=== PATIENT | male | born 1930 | race Caucasian/White ===

== ENCOUNTER 2017-07-01 09:13 | Outpatient (CLI) | payer MEDICARE ==
[~2017-07-01] VITALS: Ht 172.7 cm; Wt 68.3 kg
--- NOTE | ~2017-07-01 | DS ---
PATIENT:KEELY CHEEMA :30 MEDICAL RECORD: [id number] DISCHARGE SUMMARY ADMISSION DATE: 07/01/17 DISCHARGE DATE: 07/02/17 DATE OF DISCHARGE: 07/02/2017. DISCHARGE DIAGNOSES: 1. Angina. 2. Coronary artery disease. 3. Percutaneous transluminal coronary angioplasty stent to right coronary artery and left anterior descending this admission. HISTORY: Mr. 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 He will be brought back in the near future for PTCA stent of the circumflex. TRANSINT:[id number] Voice Confirmation ID: [id number] DOCUMENT ID: [id number] SANTHOSH CHA MD at 1018 CC: [id number] DICTATION DATE: 07/02/17 1246 COMMERCIAL REAL ESTATE AGENT: 07/03/17 0927 DEP CLI 07/02/17 [id number] [place] [address]
--- NOTE | ~2017-07-01 | HEMODYNAMI ---
PATIENT:KEELY CHEEMA MEDICAL RECORD: [id number] : 30 LOCATION:[facility] ADMISSION DATE: 07/01/17 Generatedon:07/01/201712:52 Patient name: KEELY CHEEMA Patient #: [id number] SSN: : 1930 Date of study: 07/01/2017 Page: Of Hemodynamic Procedure Report Patient Data Patient Demographics Procedure consent was obtained First Name: KEELY Gender: Male Last Name: ANETTE : 1930 Patient #: [id number] Age: 86 year(s) Race: Unknown Additional ID: [id number] Contact details Address: [address] [place] [address] State: [place] City: [place] Zip code: [address] Past Medical History Allergies Allergen Reaction Date Comments Reported Other allergy 07/01/2017 [facility] Admission Admission Data Admission Date: 07/01/2017 Admission Time: 9:13 Height (in.): 5.8 BSA: 0.31 (m2) Height (cm.): 14.73 BMI: 3323.07 (kg/m2) Weight (lbs.): 159 Weight (kg.): 72.12 Lab Results Lab Result Date: 07/01/2017 Lab Result Time: 0:00 Biochemistry Name Units Result Min Max BUN mg/dl 35 --(----)-* 7 18 Creatinine mg/dl 1.8 --(----)-* 0.6 1.3 CBC Name Units Result Min Max Hemoglobin g/dl 16.3 --(--*-)-- 13.5 17.5 Procedure Procedure Types Cath Procedure Diagnostic Procedure C [facility] w/Coronaries PCI Procedure Coronary Stent Coronary Stent Initial Miscellaneous Procedures Moderate Sedation up to 15 minutes Procedure Description Procedure Date Procedure Date: 07/01/2017 Procedure Start Time: 12:38 Procedure End Time: 12:52 Procedure Staff Name Function Saleem Melchor MD Performing Physician Delvis Burhc RT Scrub Charis Siddiqi RT Monitor Sushil Lorigan RN Nurse Procedure Data Cath Procedure Fluoroscopy Diagnostic fluoroscopy Total fluoroscopy Time: 2.8 time: 2.8 min min Diagnostic fluoroscopy Total fluoroscopy dose: 437 dose: 437 mGy mGy Contrast Material Contrast Material Type Amount (ml) Isovue 300 70 Entry Location Entry Primary Successful Side Size Upsize Upsize Entry Closure Jacobo ccessful Closure Location (Fr) 1 (Fr) 2 (Fr) Remarks Device Remarks Radial Right 6 Fr Mechanical artery Short Compression Estimated blood loss: 10 ml Diagnostic catheters Device Type Used For End Catheter Placement DIAGNOSTIC [place] 110cm 5 Procedure Fr catheter ([id number]) Procedure Complications No complications Procedure Medications Medication Administration Route Dosage 0.9% NaCl I.V. 100 ml/hr Oxygen NC 2 l/min Heparin Flush Bag added to field 2 bags (1000units/500ml NS) Lidocaine 2% added to field 20 Benadryl I.V. 50 mg Radial Cocktail added to field 1 syringe (Verapomil 2mg/Nitro 400mcg/Heparin 1500units) Versed I.V. 1 mg Fentanyl I.V. 50 mcg Radial Cocktail I.A. 1 syringe (Verapomil 2mg/Nitro 400mcg/Heparin 1500units) Heparin Bolus I.V. 4000 units Hemodynamics Rest BSA: 0.31 (m2) HGB: 16.3 (g/dl) O2 Consumption: Estimated: 35 (ml/min) O2 Consum ption indexed: Estimated:112.9 (ml/min/m) Heart Rate: 69 (bpm) Snapshots Pre Cath Intra NCS Post Cath Vital Signs Time Heart Resp SPO2 etCO2 NIBP (mmHg) Rhythm Pain Sedation Rate (ipm) (%) (mmHg) Status Level (bpm) 12:25:16 90 24 99 0 157/85(126) A-Fib 0 (11) 10(A) , No pain 12:29:58 81 19 99 15.9 153/78(124) A-Fib 0 (11) 10(A) , No pain 12:34:43 84 24 99 21.2 141/78(108) A-Fib 0 (11) 10(A) , No pain 12:39:54 85 20 98 15.9 130/74(95) A-Fib 0 (11) 10(A) , No pain 12:44:37 75 18 94 20.4 115/55(83) A-Fib 0 (11) 9(A) , No pain 12:49:16 78 17 95 0 133/65(92) A-Fib 0 (11) 10(A) , No pain Medications Time Medication Route Dose Verified Delivered Reason Note s Effectiveness by by 12:28:02 0.9% NaCl I.V. 100 Sushil Sushil Per physician ml/hr Miguel Rivera RN RN 12:28:11 Oxygen NC 2 l/min Sushil Sushil Per physician Miguel Rivera RN RN 12:28:22 Heparin Flush added 2 bags Sushil Sushil used for Bag to Miguel Rivera procedure (1000units/500ml RN RN NS) 12:28:34 Lidocaine 2% added 20ml Sushil Sushil for local to vial Miguel Rivera anesthetic RN RN 12:28:44 Benadryl I.V. 50 mg Sushil Sushil Per physician Miguel Rivera RN RN 12:28:57 Radial Cocktail added 1 Sushil Sushil used for (Verapomil to syringe Miguel Rivera procedure 2mg/Nitro field TESFAYE RN 400mcg/Heparin 1500units) 12:38:03 Versed I.V. 1 mg Sushil Sushil for sedation Miguel Rivera RN RN 12:38:19 Fentanyl I.V. 50 mcg Sushil Sushil for sedation Miguel Rivera RN RN 12:40:44 Radial Cocktail I.A. 1 Sushil Saleem for (Verapomil syringe Miguel Melchor MD vasodilation 2mg/Nitro RN 400mcg/Heparin 1500units) 12:44:56 Heparin Bolus I.V. 4000 Sushil Saleem for units Miguel Melchor MD anticoagulation aquatic habitat biologist Log Time Note 12:06:23 Patient Height : 5.8 inches 12:06:26 Patient Weight : 159 lbs 12:07:41 H&P Date Dictated: 06/29/2017 Within 30 days and on chart., H&P Addendum completed by physician on day of procedure. (MUST COMPLETE FOR ALL OUTPATIENTS). 12:08:55 Lab Result : Creatinine 1.8 mg/dl 12:08:55 Lab Result : BUN 35 mg/dl 12:08:55 Lab Result : Hemoglobin 16.3 g/dl 12:09:19 Delvis ALDRIDGE(R) sent for patient. Start room use. 12:09:20 Time tracking: Regular hours 12:09:24 Plan of Care:Hemodynamics will remain stable., Cardiac rhythm will remain stable., Comfort level will be maintained., Respiratory function will remain adequate., Patient/ family verbilizes understanding of procedure., Procedure tolerated without complication., Recovers from procedure without complications.. :: Signed procedure consent form obtained from patient. 12::29 Patient allergic to Other allergySHRIMP 12:18:20 Patient received from Pre/Post Procedure Room to CCL 1 Alert and oriented. Tansferred to table in Supine position. 12:18: Warm blankets applied, and matt hugger turned on for patient comfort. 12:: Correct patient and procedure confirmed by team. :: ECG and BP/O2 sat monitors applied to patient. : Vital chart was started 12:28:02 0.9% NaCl 100 ml/hr I.V. was administered by Sushil Rivera RN; Per physician; 12:28:11 Oxygen 2 l/min NC was administered by Sushil Rivera RN; Per physician; 12:28:22 Heparin Flush Bag (1000units/500ml NS) 2 bags added to field was administered by Sushil Rivera RN; used for procedure; 12:28:34 Lidocaine 2% 20ml vial added to field was administered by Sushil Rivera RN; for local anesthetic; 12:28:44 Benadryl 50 mg I.V. was administered by Sushil Rivera RN; Per physician; 12:28:57 Radial Cocktail (Verapomil 2mg/Nitro 400mcg/Heparin 1500units) 1 syringe added to field was administered by Sushil Rivera RN; used for procedure; 12:30:08 Baseline sample Acquired. 12:30:12 Rhythm: sinus rhythm 12:30:13 Full Disclosure recording started 12:30:14 Pre-procedure instructions explained to patient. 12:30:14 Pre-op teaching completed and patient verbalized understanding. 12:30:16 Family in patients room. 12:30:17 Patient NPO since Midnight. 12:30:22 Is the patient allergic to Iodine/contrast media? No. 12:30:25 Is patient on blood thinner?Yes 12::29 ACC The patient was administered the following blood thiners within the last 24 hours: ACCPlavix, Eliquis 12:30:31 Patient diabetic? No. 12:31:42 Previous problem with sedation/anesthesia? No ? 12:31:43 Snore? No 12:31:45 Sleep apnea? No 12:31:45 Deviated septum? No 12:31:46 Opens mouth fully? Yes 12:31:47 Sticks out tongue? Yes 12:31:49 Airway obstruction? No ? 12:31:50 Dentures? No ? 12:31:54 Modified Perry's test Ulnar < 7 seconds 12:31:56 Patient pain scale 0/10 ?. 12:32:05 IV patent on arrival in left forearm with 0.9% NaCl at [facility]. 12:32:09 Lab results completed and on chart. 12:32:13 Right Radial & Right Groin area was prepped with chlora-prep and draped in sterile fashion 12:32:14 Alarms reviewed by R. N. 12:32:14 Sharps counted by scrub and verified by R.N. 12:36:32 --------ALL STOP TIME OUT------ 12:36:33 Final Timeout: patient, procedure, and site verified with staff and physician. All members of the team are in agreement. 12:36:35 Right Radial & Right Groin site verified by team. 12:36:38 Physical assessment completed. ASA score P 2 - A patient with mild systemic disease as per Saleem Melchor MD. 12:36:41 Sedation plan: IV Moderate Sedation Medication:Versed, Fentanyl 12:36:55 Use device set Radial Dx or PCI 12:36:59 ACIST Syringe (23746) opened to sterile field. 12:37:02 Bag Decanter () opened to sterile field. 12:37:03 ACIST Manifold (30112) opened to sterile field. 12:37:03 ACIST Hand Control (63582) opened to sterile field. 12:37:04 Tegaderm 4 x 4 (1626W) opened to sterile field. 12:37:06 Medline Cath Pack ([id number]) opened to sterile field. 12:37:07 MBrace Wrist Support ([id number]) opened to sterile field. 12:37:08 SHEATH 6FR Slender ([id number]) opened to sterile field. 12:37:10 DIAGNOSTIC WIRE .035 260cm J wire (588599) opened to sterile field. 12:38:03 Versed 1 mg I.V. was administered by Sushil Rivera RN; for sedation; 12:38:19 Fentanyl 50 mcg I.V. was administered by Sushil Rivera RN; for sedation; 12:38:32 Procedure started. 12:38:57 Local anesthetic to right radial artery with Lidocaine 2% by Saleem Melchor MD.INITIAL ACCESS ONLY 12:39:26 A 6 Fr Short sheath was inserted into the Right Radial artery 12:40:36 A DIAGNOSTIC [place] 110cm 5 Fr catheter (639160) was advanced over the wire and used for Procedure. 12:40:44 Radial Cocktail (Verapomil 2mg/Nitro 400mcg/Heparin 1500units) 1 syringe I.A. was administered by Saleem Melchor MD; for vasodilation; 12:40:47 LV gram done using LAW 12:40:51 Injector settings: Ml/sec: 7, Volume: 15, 12:41:10 EF : 20 % 12:41:39 RCA angiography performed. 12:42:32 LCA angiography performed. 12:43:05 Catheter removed. 12:43:50 GUIDE 6FR AR 2.0 catheter ([id number]) opened to sterile field. 12:44:00 INFLATOR Merit BasixCompak (QF6018) opened to sterile field. 12:44:25 CHOICE PT Extra Support 182cm wire ([id number]) opened to sterile field. 12:44:45 6 Fr AR2 guide catheter was inserted over the wire 12:44:56 Heparin Bolus 4000 units I.V. was administered by Saleem Melchor MD; for anticoagulation; 12:45:00 CHOICE PT ES wire advanced. 12:45:38 Wire advanced across lesion. 12:46:33 Inflation Number: 1 A MIMA RX 3.5 x 34 stent ([id number]) was prepped and advanced across the Prox RCA. The stent was deployed at 15 CATHERINE for 0:10 (min:sec). 12:46:54 Stent catheter was removed intact over wire. 12:46:55 Wire removed. 12:46:55 Guide catheter removed. 12:48:46 TR BAND Standard ([id number]) opened to sterile field. 12:48:59 Sheath removed intact; hemostasis achieved with Mechanical Compression to the Right Radial artery. 12:49:02 Procedure ended.(Physican Out) 12:49:06 Fluoroscopy time 02.80 minutes. 12:49:10 Fluoroscopy dose: 437 mGy 12:49:10 Flurop Dose total: 437 12:49:13 Contrast amount:Isovue 300 70ml. 12:49:15 Sharps counted by scrub and verified by R.N. 12:49:17 TR band inflated with 10cc of air. 12:49:47 Post-procedure physical assessment completed. ASA score P 2 - A patient with mild systemic disease as per Saleem Melchor MD. 12:49:50 Post procedure rhythm: unchanged. 12:49:53 Estimated blood loss: 10 ml 12:49:55 Post procedure instruction explained to patient.Patient verbalizes understanding. 12:49:55 Patient needs reinforcement of post procedure teaching. 12:50:05 Procedure type changed to Cath procedure, Diagnostic procedure, LHC, LHC w/Coronaries, PCI procedure, Coronary Stent, Coronary Stent Initial, Miscellaneous Procedures, Moderate Sedation up to 15 minutes 12:51:04 Procedure and supply charges have been captured, reviewed, submitted and are correct. 12:51:06 Procedure Complication : No complications 12:52:09 Vital chart was stopped 12:52:09 See physician's report for complete and final results. 12:52:11 Report given to Pre/Post Procedure Room. 12:52:19 Patient transfered to Pre/Post Procedure Room with Bed. 12:52:20 Procedure ended. 12:52:20 Full Disclosure recording stopped 12:52:24 End room use (Document Last) Intervention Summary Intervention Notes Time ActionType Lesion and Equipment Used Action# Pressure Duration Attributes 12:46:33 Place stent Prox RCA MIMA RX 3.5 x 1 15 00:10 34 stent ([id number]) Device Usage Item Name Manufacture Quantity Catalog Number Hospital Part Current M inimal Lot# / Charge Number Stock Stock Serial# Code ACIST Syringe Acist 1 21715 034448 083299 175940 2 0 (45742) Medical Systems Inc Bag Decanter Microtek 1 2001S 463888 71774 783228 5 () Medical Inc. ACIST Manifold Acist 1 15349 873784 185249 633999 5 (26308) Medical Systems Inc ACIST Hand Acist 1 79634 835740 523077 542877 5 Control Medical (98298) Systems Inc Tegaderm 4 x 4 3M 1 1626W 355403 276288 031313 5 (1626W) Medline Cath Cardinal 1 [id number] 477474 90192 764873 5 Pack Health ([id number]) MBrace Wrist Advanced 1 140-0250-00 963976 02527 862166 5 Support Vascular ([id number]) Dynamics SHEATH 6FR Terumo 1 [id number] 746092 027543 411288 4 0 Slender ([id number]) DIAGNOSTIC [facility] [place] 1 784524 718469 431107 499248 3 0 WIRE .035 260cm J wire (255443) DIAGNOSTIC Terumo 1 40-2759 767796 026390 330641 5 [place] 110cm 5 Fr catheter (705483) GUIDE 6FR AR Medtronic 1 [id number] 670145 36098 725646 1 2.0 catheter (GL1HR74) INFLATOR Merit Merit 1 PP2284 760135 831986 890185 1 5 [employer] (KA3082) CHOICE PT Cunningham 1 [id number] 397221 431036 559734 5 Extra Support Scientific 182cm wire ([id number]) MIMA RX 3.5 x Medtronic 1 [id number] 288646 7435532 961732 5 [id number] 34 stent ([id number]) TR BAND Terumo 1 [id number] 708236 633601 911624 4 0 Standard ([id number]) Signature Audit [place] Stage Time Signature Unsigned Intra-Procedure 07/01/2017 Charis Siddiqi 12:52:40 PM RT(R) Signatures Monitor : Charis Siddiqi Signature : RT Date : Time : [facility] [address] [place] [address]
--- NOTE | ~2017-07-01 | HEMODYNAMI ---
PATIENT:KELEY CHEEMA MEDICAL RECORD: [id number] : 30 LOCATION:[facility] [address] [place], [place] [address]T# [id number] ADMISSION DATE: 07/01/17 Generatedon:07/02/201712:56 Patient name: KEELY CHEEMA Patient #: [id number] SSN: : 1930 Date of study: 07/02/2017 Page: Of Hemodynamic Procedure Report Patient Data Patient Demographics Procedure consent was obtained First Name: KEELY Gender: Male Last Name: ANETTE : 1930 Patient #: [id number] Age: 86 year(s) Race: Unknown Additional ID: [id number] Contact details Address: [address] [place] [address] State: [place] City: [place] Zip code: [address] Past Medical History Allergies Allergen Reaction Date Comments Reported Other allergy 07/01/2017 SHRIMP Other allergy 07/02/2017 [facility] Admission Admission Data Admission Date: 07/01/2017 Admission Time: 9:13 Room #: [facility] Height (in.): 5.8 BSA: 0.31 (m2) Height (cm.): 14.73 BMI: 3323.07 (kg/m2) Weight (lbs.): 159 Weight (kg.): 72.12 Lab Results Lab Result Date: 07/01/2017 Lab Result Time: 0:00 Biochemistry Name Units Result Min Max BUN mg/dl 35 --(----)-* 7 18 Creatinine mg/dl 1.8 --(----)-* 0.6 1.3 CBC Name Units Result Min Max Hemoglobin g/dl 16.3 --(--*-)-- 13.5 17.5 Procedure Procedure Types Cath Procedure PCI Procedure Coronary Stent Coronary Stent Initial Miscellaneous Procedures Moderate Sedation up to 15 minutes Procedure Description Procedure Date Procedure Date: 07/02/2017 Procedure Start Time: 12:29 Procedure End Time: 12:48 Procedure Staff Name Function Watson Riojas RN Nurse Saleem Melchor MD Performing Physician Nitin Chen RT Scrub [facility] RT Monitor Procedure Data Cath Procedure Fluoroscopy Diagnostic fluoroscopy Total fluoroscopy Time: 5.3 time: 5.3 min min Diagnostic fluoroscopy Total fluoroscopy dose: 566 dose: 566 mGy mGy Contrast Material Contrast Material Type Amount (ml) Isovue 300 78 Entry Location Entry Primary Successful Side Size Upsize Upsize Entry Closure Succes sful Closure Location (Fr) 1 (Fr) 2 (Fr) Remarks Device Remarks Femoral Right 6 Fr Exoseal artery Short Estimated blood loss: 10 ml Procedure Complications No complications Procedure Medications Medication Administration Route Dosage Oxygen NC 2 l/min Lidocaine 2% added to field 20 Heparin Flush Bag added to field 2 bags (1000units/500ml NS) 0.9% NaCl I.V. 100 ml/hr Versed I.V. 1 mg Fentanyl I.V. 50 mcg Versed I.V. 0.5 mg Fentanyl I.V. 25 mcg Heparin Bolus I.V. 4000 units Versed I.V. 0.5 mg Fentanyl I.V. 25 mcg Hemodynamics Rest BSA: 0.31 (m2) HGB: 16.3 (g/dl) O2 Consumption: Estimated: 42.16 (ml/min) O2 Con sumption indexed: Estimated:136 (ml/min/m) Pre Cath Intra NCS Post Cath Vital Signs Time Heart Resp SPO2 etCO2 NIBP (mmHg) Rhythm Pain Sedation Rate (ipm) (%) (mmHg) Status Level (bpm) 12:20:55 90 19 97 18.9 156/78(117) NSR 0 (11) 10(A) , No pain 12:25:37 77 18 98 18.2 138/84(129) NSR 0 (11) 10(A) , No pain 12:30:22 74 16 98 17.4 139/71(128) NSR 0 (11) 9(A) , No pain 12:35:33 69 15 98 10.6 132/66(113) NSR 0 (11) 9(A) , No pain 12:40:14 69 14 97 0 137/74(108) NSR 0 (11) 10(A) , No pain 12:44:54 72 15 98 9.8 137/86(121) NSR 0 (11) 10(A) , No pain Medications Time Medication Route Dose Verified Delivered Reason Notes Effectiveness by by 12:23:26 Oxygen NC 2 Saleem Watson used for l/min Jill Riojas RN procedure 12:23:32 Lidocaine 2% added 20ml Saleem Monge for local to vial Jill Melchor MD anesthetic field 12:23:38 Heparin Flush added 2 Saleemcatalina Monge used for Bag to bags Jill Melchor MD procedure (1000units/500ml field NS) 12:23:46 0.9% NaCl I.V. 100 Saleem Chaudhari Per physician ml/hr Jill Riojas RN 12:24:50 Versed I.V. 1 mg Saleem Chaudhari for sedation Jill Riojas RN 12:24:55 Fentanyl I.V. 50 Saleem Chaudhari for sedation mcg Jill Riojas RN 12:30:30 Versed I.V. 0.5 Saleem Magañaie for sedation mg Jill Riojas RN 12:30:34 Fentanyl I.V. 25 Saleem Chaudhari for sedation mcg Jill Riojas RN 12:31:48 Heparin Bolus I.V. 4000 Saleem Chaudhari for verifi ed units Jill Riojas RN anticoagulation with dr melchor 12:40:04 Versed I.V. 0.5 Saleem Magañaie for sedation mg Jill Riojas RN 12:40:08 Fentanyl I.V. 25 Saleem Chaudhari for sedation mcg Jill Riojas RN Procedure Log Time Note 12:00:51 Watson Riojas RN sent for patient. Start room use. 12:11:33 Informed consent obtained and on chart 12:11:56 Time tracking: Regular hours 12:12:00 Plan of Care:Hemodynamics will remain stable., Cardiac rhythm will remain stable., Comfort level will be maintained., Respiratory function will remain adequate., Patient/ family verbilizes understanding of procedure., Procedure tolerated without complication., Recovers from procedure without complications.. 12:12:01 Patient Weight : 159 lbs 12:12:01 Patient Height : 5.8 inches 12:12:03 Patient received from PCU to CCL 1 Alert and oriented. Tansferred to table in Supine position. 12:12:05 Warm blankets applied, and matt hugger turned on for patient comfort. 12:12:06 ECG and BP/O2 sat monitors applied to patient. 12:12:06 Correct patient and procedure confirmed by team. 12:12:47 Lab results completed and on chart. 12:18:34 H&P Date Dictated: 07/01/2017 Within 30 days and on chart.. 12:18:36 Pre-procedure instructions explained to patient. 12:18:38 Family in waiting room. 12:18:44 Patient NPO since Midnight. 12:18:59 Patient allergic to Other allergyShrimp 12:19:10 Is the patient allergic to Iodine/contrast media? Yes. 12:19:12 Was the patient premedicated? Yes 12:19:15 Is patient on blood thinner?Yes 12:19:19 ACC The patient was administered the following blood thiners within the last 24 hours: ACCPlavix 12:19:22 Patient diabetic? No. 12:19:30 Snore? No 12:19:32 Sleep apnea? No 12:19:36 Airway obstruction? No ? 12:19:44 Patient pain scale 0/10 ?. 12:19:53 IV patent on arrival in right forearm with 0.9% NaCl at KVO. 12:20:00 Vital chart was started 12:20:02 Right groin area was prepped with chlora-prep and draped in sterile fashion 12:20:04 Sharps counted by scrub and verified by R.N. 12:20:04 Alarms reviewed by R. N. 12:20:07 Physician paged 12:22:31 Final Timeout: patient, procedure, and site verified with staff and physician. All members of the team are in agreement. 12:22:31 --------ALL STOP TIME OUT------ 12:22:34 Right groin site verified by team. 12:22:38 Physical assessment completed. ASA score P 2 - A patient with mild systemic disease as per Saleem Melchor MD. 12:22:42 Sedation plan: IV Moderate Sedation Medication:Versed, Fentanyl 12:23:26 Oxygen 2 l/min NC was administered by Watson Riojas RN; used for procedure; 12:23:32 Lidocaine 2% 20ml vial added to field was administered by Saleem Melchor MD; for local anesthetic; 12:23:38 Heparin Flush Bag (1000units/500ml NS) 2 bags added to field was administered by Saleem Melchor MD; used for procedure; 12:23:46 0.9% NaCl 100 ml/hr I.V. was administered by Watson Riojas RN; Per physician; 12:24:50 Versed 1 mg I.V. was administered by Watson Riojas RN; for sedation; 12:24:55 Fentanyl 50 mcg I.V. was administered by Watson Riojas RN; for sedation; 12:26:21 Use device set TAUTH PCI 12:26:24 Use device set CATH PACK 12:26:29 ACIST Hand Control (48059) opened to sterile field. 12:26:29 ACIST Syringe (77091) opened to sterile field. 12:26:30 ACIST Manifold (30448) opened to sterile field. 12:26:31 Bag Decanter (2002S) opened to sterile field. 12::31 Medline Cath Pack ([id number]) opened to sterile field. 12:26:33 DIAGNOSTIC WIRE .035 260cm J wire (052263) opened to sterile field. 12:26:41 INFLATOR Merit BasixCompak (XI0467) opened to sterile field. 12:26:57 SHEATH 6FR [place] (MYL955) opened to sterile field. 12:27:20 PERCUTANEOUS ENTRY 19GA needle opened to sterile field. 12:27:34 Zero performed for pressure channel P1 12:27:47 Zero performed for pressure channel P1 12::56 Zero performed for pressure channel P1 12:29:46 GUIDE 6FR XBLAD 3.5 catheter ([id number]) opened to sterile field. 12:29:50 Procedure started. 12:29:51 Full Disclosure recording started 12:29:54 Local anesthetic to right femoral artery with Lidocaine 2% by Saleem Melchor MD.INITIAL ACCESS ONLY 12:30:13 A 6 Fr Short sheath was inserted into the Right Femoral artery 12:30:30 Versed 0.5 mg I.V. was administered by Watson Riojas RN; for sedation; 12:30:34 CHOICE PT Extra Support 182cm wire ([id number]) opened to sterile field. 12:30:34 Fentanyl 25 mcg I.V. was administered by Watson Riojas RN; for sedation; 12:30:57 6 Fr XBLAD 3.5 guide catheter was inserted over the wire 12:31:04 Wire removed. 12:31:17 GUIDE 6FR XBLAD 4.0 catheter (55555312) opened to sterile field. 12:31:32 6 Fr XBLAD 4 guide catheter was inserted over the wire 12:31:48 Heparin Bolus 4000 units I.V. was administered by Watson Riojas RN; for anticoagulation; verified with dr melchor 12:33:14 WHISPER 300cm guide wire ([id number]) opened to sterile field. 12:33:58 WHISPER 300 wire advanced. 12:34:54 Wire removed. 12:34:58 CHOICE PT Extra Support J 300cm guide wire ([id number]) opened to sterile field. 12:35:09 CHOICE PT 300 wire advanced. 12:36:25 Inflation Number: 1 A MIMA OTW 2.25 x 12 stent ([id number]) was prepped and advanced across the Dist LAD. The stent was deployed at 13 CATHERINE for 0:10 (min:sec). 12:37:00 Wire redirected to DIAG. 12:37:35 Stent catheter was removed intact over wire. 12:39:03 Inflation Number: 1 A MIMA OTW 2.25 x 08 stent ([id number]) was prepped and advanced across the 1st Diag. The stent was deployed at 17 CATHERINE for 0:10 (min:sec). 12:39:16 Wire redirected to LAD. 12:39:22 Stent catheter was removed intact over wire. 12:40:04 Versed 0.5 mg I.V. was administered by Watson Riojas RN; for sedation; 12:40:08 Fentanyl 25 mcg I.V. was administered by Watson Riojas RN; for sedation; 12:40:57 Inflation Number: 1 A MIMA OTW 2.5 x 15 stent ([id number]) was prepped and advanced across the Prox LAD. The stent was deployed at 17 CATHERINE for 0:10 (min:sec). 12:41:33 Inflation number: 2 The stent balloon was then re-inflated across the Prox LAD to 17 CATHERINE for 0:10 (min:sec). 12:41:48 Stent catheter was removed intact over wire. 12:41:49 Wire removed. 12:41:56 Guide catheter removed. 12:42:04 EXOSEAL 6Fr (EX600) opened to sterile field. 12:42:52 Sheath removed intact; hemostasis achieved with Exoseal to the Right Femoral artery. 12:42:54 Procedure ended.(Physican Out) 12:43:06 Fluoroscopy time 05.30 minutes. 12:43:11 Flurop Dose total: 566 12:43:11 Fluoroscopy dose: 566 mGy 12:43:19 Contrast amount:Isovue 300 78ml. 12:43:21 Sharps counted by scrub and verified by R.N. 12:43:30 FEMSTOP Gold (X61640) opened to sterile field. 12:43:34 Post procedure: right dorsailis pedis pulse 2+ Normal; easily identifiable; not easily obliterated. 12:43:40 Post-procedure physical assessment completed. ASA score P 2 - A patient with mild systemic disease as per Saleem Melchor MD. 12:43:41 Femstop placed over the right femoral artery at 170 mmHg. Hemostasis achieved. 12:46:58 Post procedure rhythm: unchanged. 12:47:00 Estimated blood loss: 10 ml 12:47:01 Post procedure instruction explained to patient.Patient verbalizes understanding. 12:47:02 Patient needs reinforcement of post procedure teaching. 12:47:54 Procedure type changed to Cath procedure, PCI procedure, Coronary Stent, Coronary Stent Initial, Miscellaneous Procedures, Moderate Sedation up to 15 minutes 12:48:43 Procedure and supply charges have been captured, reviewed, submitted and are correct. 12:48:46 Procedure Complication : No complications 12:48:48 Vital chart was stopped 12:48:49 See physician's report for complete and final results. 12:48:50 Report given to PCU. 12:48:53 Patient transfered to PCU with Bed. 12:48:54 Procedure ended. 12:48:54 Full Disclosure recording stopped 12:48:57 End room use (Document Last) Intervention Summary Intervention Notes Time ActionType Lesion and Equipment Action# Pressure Duration Attributes Used 12:36:25 Place stent Dist LAD MIMA OTW 2.25 1 13 00:10 x 12 stent ([id number]) 12:39:03 Place stent 1st Diag MIMA OTW 2.25 1 17 00:10 x 08 stent ([id number]) 12:40:57 Place stent Prox LAD MIMA OTW 2.5 1 17 00:10 x 15 stent ([id number]) 12:41:33 Reinflate Prox LAD MIMA OTW 2.5 2 17 00:10 stent x 15 stent balloon ([id number]) Device Usage Item Name Manufacture Quantity Catalog Number Hospital Part Current Min imal Lot# / Charge Number Stock Stock Serial# Code ACIST Syringe Acist 1 10918 293519 990945 947239 20 (11038) Medical Systems Inc ACIST Hand Acist 1 66986 782185 166885 115094 5 Control Medical (04002) Systems Inc ACIST Acist 1 27351 705558 933625 353852 5 Manifold Medical (78123) Systems Inc Medline Cath Cardinal 1 [id number] 282792 96206 529796 5 Pack Spangle ([id number]) Bag Decanter Microtek 1 2001S 605643 12079 532096 5 () Medical Inc. DIAGNOSTIC [place] 1 773726 791753 134179 698145 30 WIRE .035 260cm J wire (409235) INFLATOR [employer]lemental [employer] 1 OY6974 236349 116451 162246 15 [employer] BasixCompak (YB4870) SHEATH 6FR Terumo 1 ZIU313 800155 785164 983313 40 [place] (RYW606) PERCUTANEOUS [facility] 1 H32865 497103 097152 5 ENTRY 19GA needle GUIDE 6FR Cardinal 1 33890698 623011 425415 803860 10 XBLAD 3.5 Health catheter (41372122) CHOICE PT [place] 1 [id number] 323939 778337 484528 5 Extra Support Scientific 182cm wire (4691007I5) GUIDE 6FR Cardinal 1 11985880 091969 067262 953574 3 XBLAD 4.0 Health catheter (21182501) WHISPER 300cm [place] 1 [id number] 260870 212501 577753 5 guide wire Vascular (6101130TB) CHOICE PT [place] 1 [id number] 174347 225165 206504 5 Extra Support Scientific J 300cm guide wire (3389085D5) MIMA OTW 2.25 Medtronic 1 [id number] 454265 14675 056193 5 [id number] x 12 stent ([id number]) MIMA OTW 2.25 Medtronic 1 [id number] 165855 11731 342616 5 [id number] x 08 stent ([id number]) MIMA OTW 2.5 Medtronic 1 [id number] 745146 44374 867674 5 [id number] x 15 stent ([id number]) EXOSEAL 6Fr Cardinal 1 EX600 957695 556177 928426 10 (EX600) Health FEMSTOP Gold [facility] [place] 1 [id number] 206499 734473 099416 5 ([id number]) Signature Audit [place] Stage Time Signature Unsigned Intra-Procedure 07/02/2017 Charis Espinozaa Devang 12:50:05 PM RT(R) RT(R) 07/02/2017 12:50:48 PM Intra-Procedure 07/02/2017 Charis Siddiqi 12:56:25 PM RT(R) Signatures Monitor : Charis Siddiqi Signature : RT Date : Time : [address] [place] [address]
--- NOTE | ~2017-07-01 | OP ---
PATIENT NAME: KEELY CHEEMA MEDICAL RECORD: [id number] :30 LOCATION:D.CAT ADMISSION DATE: SURGEON: SANTHOSH CHA MD DATE OF OPERATION: 07/02/2017 PROCEDURES: 1. PTCA of the LAD, PTCA of the LAD diagonal. 2. Selective coronary angiography. PROCEDURE IN DETAIL: After informed consent was obtained and after a detailed explanation of risks, benefits as well as alternative therapies, the patient elected to proceed with angiogram and angioplasty. The right femoral area was prepped and draped in normal sterile fashion. The right femoral artery was cannulated via modified Seldinger technique with placement of 6-Lao sheath. All catheters exchanged through this sheath. FINDINGS: The left anterior descending has 2 areas of 75% and 95% stenosis. The diagonal has a 95% stenosis. The diagonal was addressed with 2.25 x 8-mm Nain. The LAD with a 2.25 x 12 and 2.5 x 15, both Clyde stents. Result was 0% residual stenosis. OVERALL IMPRESSION: Successful PTCA and stent of the LAD and LAD diagonal, both going from 95% initial stenosis to 0% residual. TRANSINT:[id number] Voice Confirmation ID: [id number] DOCUMENT ID: [id number] SANTHOSH CHA MD at 1018 CC: [id number] DICTATION DATE: 07/02/17 1247 BALL ENDER: 07/02/17 1406 DEP CLI 07/02/17 [place] [id number]
--- NOTE | ~2017-07-01 | OP ---
PATIENT NAME: KEELY CHEEMA MEDICAL RECORD: [id number] :30 LOCATION:D.M2 D.2114 ADMISSION DATE: SURGEON: SANTHOSH CHA MD DATE OF OPERATION: 07/01/2017 PROCEDURES: 1. PTCA stent to RCA. 2. Left heart catheterization. 3. Selective coronary angiography. 4. Left ventriculogram. INDICATION: Angina and coronary artery disease. PROCEDURE IN DETAIL: After informed consent was obtained and after a detailed explanation of the risks, benefits as well as alternative therapies, the patient elected to proceed with angiogram and angioplasty. The right radial area was prepped and draped in normal sterile fashion. The right radial artery was cannulated via modified Seldinger technique with placement of 6-Citizen [place] sheath. All catheters exchanged through this sheath. FINDINGS: Left ventriculogram was performed in standard 30-degree LAW view reveals global hypokinesis throughout all segments. Overall ejection fraction is 20%. SELECTIVE CORONARY ANGIOGRAPHY: 1. Left main showed no significant angiographic disease. 2. Left anterior descending has multiple areas of 90% to 95% stenosis. 3. The left circumflex has 95% stenosis distally. 4. Right coronary artery is large, dominant vessel with greater than 70% stenosis in the mid vessel. PTCA STENT OF THE RIGHT CORONARY ARTERY: The stent used was a 3.5 x 34 mm [place]. Result was 0% residual stenosis. OVERALL IMPRESSION: Successful percutaneous transluminal coronary angioplasty stent of the right coronary artery going from greater than 70% initial stenosis to 0% residual. PLAN: PTCA stent of the LAD and left circumflex in the near future. TRANSINT:[id number] Voice Confirmation ID: [id number] DOCUMENT ID: [id number] SANTHOSH CHA MD at 1025 CC: [id number] DICTATION DATE: 07/01/17 1253 INSTRUMENT REPAIR TECHNICIAN: 07/01/17 1318 [id number] [place] [address]
[2017-07-01] MEDS ORDERED: PLAVIX75 MG PO (10:00)
[2017-07-01] MEDS ORDERED: PREDNISONE20 MG PO (10:00)
[2017-07-01] MEDS ORDERED: NORVASC5 MG PO (10:01)
[2017-07-01] MEDS ORDERED: LISINOPRIL5 MG PO (10:01)
[2017-07-01] MEDS ORDERED: PROSCAR5 MG PO (10:01)
[2017-07-01] MEDS ORDERED: FUROSEMIDE40 MG PO (10:02)
[2017-07-01] MEDS ORDERED: SYNTHROID50 MCG PO (10:03)
[2017-07-01] MEDS ORDERED: K-DUR20 MEQ PO (10:03)
[2017-07-01 10:18] VITALS: BP 155/84; BMI 24.2
[2017-07-01 10:30] LABS: BASOPHILS 0.1 % (0-2); EOSINOPHILS 0 % (0-7); HEMATOCRIT 46.3 % (42.0-54.0); HEMOGLOBIN 16.3 g/dL (13.5-17.5); IMMATURE GRANULOCYTES 0.2 % (0-5); LYMPHOCYTES 8.7 % (15-50); MCH 31.3 pg (26.0-34.0); MCHC 35.2 g/dL (31.0-37.0); MCV 88.9 fL (80.0-100.0); MEAN PLATELET VOLUME 11.3 fL (7.4-10.4); MONOCYTES 4.7 % (2-11); NEUTROPHILS 86.3 % (40-80); PLATELET COUNT 148 10x3/uL (130-400); RBC 5.21 10x6/uL (4.20-6.10); RDW 12.9 % (11.5-14.5); WBC 10.3 10x3/uL (4.8-10.8)
[2017-07-01 10:57] LABS: ANION GAP 13.7 mmol/L (8-16); CALCIUM 9.3 mg/dL (8.5-10.1); CARBON DIOXIDE 27.2 mmol/L (21.0-32.0); CREATININE - SERUM 1.8 mg/dL (0.6-1.3); POTASSIUM - SERUM 3.9 mmol/L (3.5-5.1)
[2017-07-01 14:46] VITALS: BP 133/70; Ht 172.7 cm; Wt 68.3 kg
[2017-07-01 21:17] VITALS: BP 129/54
[2017-07-02 06:06] VITALS: BP 132/67
[2017-07-02 08:02] VITALS: BP 105/73
[2017-07-02 12:00] VITALS: BP 155/85
[2017-07-02 13:46] LABS: BASOPHILS 0 % (0-2); EOSINOPHILS 0 % (0-7); HEMOGLOBIN 14.8 g/dL (13.5-17.5); IMMATURE GRANULOCYTES 0.2 % (0-5); LYMPHOCYTES 5.4 % (15-50); MCH 30.8 pg (26.0-34.0); MCHC 34.4 g/dL (31.0-37.0); MCV 89.4 fL (80.0-100.0); MEAN PLATELET VOLUME 11.3 fL (7.4-10.4); MONOCYTES 3.6 % (2-11); NEUTROPHILS 90.8 % (40-80); PLATELET COUNT 134 10x3/uL (130-400); RBC 4.81 10x6/uL (4.20-6.10); RDW 13.1 % (11.5-14.5); WBC 12.5 10x3/uL (4.8-10.8)
[2017-07-02 14:04] LABS: ANION GAP 13.6 mmol/L (8-16); CALCIUM 8.8 mg/dL (8.5-10.1); CARBON DIOXIDE 23.6 mmol/L (21.0-32.0); CREATININE - SERUM 1.5 mg/dL (0.6-1.3); POTASSIUM - SERUM 4.2 mmol/L (3.5-5.1)
[2017-07-02 16:00] VITALS: BP 129/067
== END 2017-07-02 17:56 | disposition home or self-care (01) ==
LOC: D.CATH 09:13 → D.M2 09:13 → D.CATH 11:30 → D.M2 14:21 → D.CATH 07-02 17:56
PROVIDERS: Internal Medicine Interventional Cardiology
DX: I25.119 Atherosclerotic heart disease of native coronary artery with unspecified angina pectoris (principal); Z01.812 Encounter for preprocedural laboratory examination
CPT/HCPCS: 93458; C9600 ×2; C9601

== ENCOUNTER 2017-07-07 07:46 | Outpatient (CLI) | payer MEDICARE ==
[~2017-07-07] VITALS: Ht 172.7 cm; Wt 72.3 kg
--- NOTE | ~2017-07-07 | OP ---
PATIENT NAME: KEELY CHEEMA MEDICAL RECORD: [id number] :30 LOCATION:D.CAT ADMISSION DATE: SURGEON: SANTHOSH CHA MD DATE OF OPERATION: 07/07/2017 PROCEDURES: 1. PTCA stent of ramus intermedius. 2. Selective coronary angiography. INDICATION: Angina and coronary artery disease. PROCEDURE IN DETAIL: After informed consent was obtained and after detailed explanation of risks, benefits as well as alternative therapies, the patient elected to proceed with angiogram and angioplasty. The left femoral area was prepped and draped in normal sterile fashion. Left femoral artery was cannulated via modified Seldinger technique with placement of 6-Sinhala sheath. All catheters exchanged through this sheath. FINDINGS: The ramus intermedius was 95% stenosed. This was addressed with a 2.5 x 18 mm Nain stent. Result was 0% residual stenosis. OVERALL IMPRESSION: Successful percutaneous transluminal coronary angioplasty stent of the ramus intermedius going from 95% initial stenosis to 0% residual. TRANSINT:[id number] Voice Confirmation ID: [id number] DOCUMENT ID: [id number] SANTHOSH CHA MD at 1800 CC: [id number] DICTATION DATE: 07/07/17 1117 [employer] BUS DRIVER: 07/07/17 1254 DEP CLI 07/07/[address] [address]
--- NOTE | ~2017-07-07 | HEMODYNAMI ---
PATIENT:KEELY CHEEMA MEDICAL RECORD: [id number] : 30 LOCATION:[facility] ADMISSION DATE: 07/07/17 Generatedon:07/07/201711:18 Patient name: KEELY CHEEMA Patient #: [id number] SSN: : 1930 Date of study: 07/07/2017 Page: Of Hemodynamic Procedure Report Patient Data Patient Demographics Procedure consent was obtained First Name: KEELY Gender: Male Last Name: ANETTE : 1930 Patient #: [id number] Age: 86 year(s) Race: Unknown Additional ID: [id number] Contact details [address]: [address] [place] [address] State: [place] City: [place] Zip code: [address] Past Medical History Allergies Allergen Reaction Date Comments Reported Other allergy 07/01/2017 SHRIMP Other allergy 07/02/2017 [facility] Admission Admission Data Admission Date: 07/07/2017 Admission Time: 7:46 Lab Results Lab Result Date: 07/01/2017 Lab Result Time: 0:00 Biochemistry Name Units Result Min Max BUN mg/dl 35 --(----)-* 7 18 Creatinine mg/dl 1.8 --(----)-* 0.6 1.3 CBC Name Units Result Min Max Hemoglobin g/dl 16.3 --(--*-)-- 13.5 17.5 Procedure Procedure Types Cath Procedure PCI Procedure Coronary Stent Coronary Stent Initial Miscellaneous Procedures Moderate Sedation up to 15 minutes Procedure Description Procedure Date Procedure Date: 07/07/2017 Procedure Start Time: 11:05 Procedure End Time: 11:16 Procedure Staff Name Function Saleem Melchor MD Performing Physician Delvis Burch RT Monitor Rosetta Hernández RT Scrub Sushil Rivera RN Nurse Procedure Data Cath Procedure Fluoroscopy Diagnostic fluoroscopy Total fluoroscopy Time: 1.8 time: 1.8 min min Diagnostic fluoroscopy Total fluoroscopy dose: 162 dose: 162 mGy mGy Contrast Material Contrast Material Type Amount (ml) Isovue 300 44 Entry Location Entry Primary Successful Side Size Upsize Upsize Entry Closure Succes sful Closure Location (Fr) 1 (Fr) 2 (Fr) Remarks Device Remarks Femoral Left 6 Fr Exoseal artery Short Estimated blood loss: 10 ml Procedure Complications No complications Procedure Medications Medication Administration Route Dosage 0.9% NaCl I.V. 100 ml/hr Oxygen NC 2 l/min Heparin Flush Bag added to field 2 bags (1000units/500ml NS) Lidocaine 2% added to field 20 Versed I.V. 1 mg Fentanyl I.V. 50 mcg Heparin Bolus I.V. 4000 units Hemodynamics Rest HGB: 16.3 (g/dl) Heart Rate: 61 (bpm) Pressure Samples Time Site Value (mmHg) Purpose Heart Use Rate(bpm) 11:09 AO 147/63(95) Snapshot 70 Snapshots Pre Cath Intra NCS Post Cath Vital Signs Time Heart Resp SPO2 etCO2 NIBP (mmHg) Rhythm Pain Sedation Rate (ipm) (%) (mmHg) Status Level (bpm) 10:51:30 97 18 98 25.1 148/79(131) NSR 0 (11) 10(A) , No pain 10:55:46 76 19 99 13.7 146/71(116) NSR 0 (11) 10(A) , No pain 11:00:00 74 15 99 21.3 134/79(114) NSR 0 (11) 10(A) , No pain 11:04:10 74 16 98 22 140/73(102) NSR 0 (11) 10(A) , No pain 11:08:24 69 15 98 15.9 133/71(105) NSR 0 (11) 9(A) , No pain 11:12:32 78 15 98 15.2 132/67(104) NSR 0 (11) 9(A) , No pain 11:16:46 67 14 98 17.5 132/61(113) NSR 0 (11) 9(A) , No pain Medications Time Medication Route Dose Verified Delivered Reason Notes Effectiveness by by 10:53:47 0.9% NaCl I.V. 100 Sushil Sushil Per physician ml/hr Miguel Rivera RN RN 10:54:23 Oxygen NC 2 Sushil Sushil Per physician l/min Miguel Rivera RN RN 10:54:41 Heparin Flush added 2 Sushil Sushil used for Bag to bags Miguel Rivera procedure (1000units/500ml field RN RN NS) 11:00:46 Lidocaine 2% added 20ml Sushil Sushil for local to vial Miguel Rivera anesthetic field TESFAYE RN 11:06:28 Versed I.V. 1 mg Sushil Sushil for sedation Miguel Rivera RN RN 11:06:37 Fentanyl I.V. 50 Sushil Sushil for sedation mcg Miguel Rivera RN RN 11:08:02 Heparin Bolus I.V. 4000 Sushil Sushil for units Miguel Rivera anticoagulation RN cafe associate Log Time Note 10:30:52 Sushil Rivera RN sent for patient. Start room use. 10:46:10 Time tracking: Regular hours 10:46:14 Plan of Care:Hemodynamics will remain stable., Cardiac rhythm will remain stable., Comfort level will be maintained., Respiratory function will remain adequate., Patient/ family verbilizes understanding of procedure., Procedure tolerated without complication., Recovers from procedure without complications.. 10:46:26 Patient received from Pre/Post Procedure Room to [facility] 3 Alert and oriented. Tansferred to table in Supine position. 10:46:27 Warm blankets applied, and matt hugger turned on for patient comfort. 10:46:27 Correct patient and procedure confirmed by team. 10:46:29 Signed procedure consent form obtained from patient. 10:46:34 ECG and BP/O2 sat monitors applied to patient. 10:50:28 Vital chart was started 10:50:29 Baseline sample Acquired. 10:50:33 Rhythm: sinus rhythm 10:50:34 Full Disclosure recording started 10:53:47 0.9% NaCl 100 ml/hr I.V. was administered by Sushil Rivera RN; Per physician; 10:54:23 Oxygen 2 l/min NC was administered by Sushil Rivera RN; Per physician; 10:54:29 H&P Date Dictated: 06/29/2017 Within 30 days and on chart., H&P Addendum completed by physician on day of procedure. (MUST COMPLETE FOR ALL OUTPATIENTS). 10:54:30 Pre-procedure instructions explained to patient. 10:54:30 Pre-op teaching completed and patient verbalized understanding. 10:54:32 Family in waiting room. 10:54:33 Patient NPO since Midnight. 10:54:35 Is the patient allergic to Iodine/contrast media? No. 10:54:41 Heparin Flush Bag (1000units/500ml NS) 2 bags added to field was administered by Sushil Rivera RN; used for procedure; 10:54:42 Is patient on blood thinner?Yes 10:54:44 ACC The patient was administered the following blood thiners within the last 24 hours: ACCPlavix 10:54:45 Patient diabetic? No. 10:54:48 Previous problem with sedation/anesthesia? No ? 10:54:49 Snore? No 10:54:50 Sleep apnea? No 10:54:50 Deviated septum? No 10:54:51 Opens mouth fully? Yes 10:54:52 Sticks out tongue? Yes 10:54:53 Airway obstruction? No ? 10:54:55 Dentures? No ? 10:54:58 Pre procedure: left dorsailis pedis pulse 1+ Palpable, but thready & weak; easily obliterated 10:55:05 Patient pain scale 0/10 ?. 10:55:09 IV patent on arrival in left forearm with 0.9% NaCl at [facility]. 10:55:19 Lab results completed and on chart. 10:55:22 Right groin area was prepped with chlora-prep and draped in sterile fashion 10:55:24 Alarms reviewed by R. N. 10:55:24 Sharps counted by scrub and verified by R.N. 10:55:33 Tegaderm 4 x 4 ([id number]) opened to sterile field. 10:55:34 ACIST Manifold (72977) opened to sterile field. 10:55:34 ACIST Hand Control (66481) opened to sterile field. 10:55:36 ACIST Syringe (17203) opened to sterile field. 10:55:36 Medline Cath Pack ([id number]) opened to sterile field. 10:55:37 Bag Decanter () opened to sterile field. 10:55:41 DIAGNOSTIC WIRE .035 260cm J wire (772143) opened to sterile field. 10:55:50 Use device set TAUTH PCI 10:57:20 INFLATOR Merit BasixCompak ([id number]) opened to sterile field. 10:57:20 SHEATH 6FR [place] (BQO027) opened to sterile field. 10:57:23 CHOICE PT Extra Support 182cm wire ([id number]) opened to sterile field. 10:57:43 NEEDLE Merit 18G 9cm Percutaneous Entry ([id number]) opened to sterile field. 11:00:46 Lidocaine 2% 20ml vial added to field was administered by Sushil Rivera RN; for local anesthetic; 11:03:43 GUIDE 6FR XBLAD 4.0 catheter ([id number]) opened to sterile field. 11:03:51 --------ALL STOP TIME OUT------ 11::51 Final Timeout: patient, procedure, and site verified with staff and physician. All members of the team are in agreement. 11:03:53 Left groin site verified by team. 11:03:55 Physical assessment completed. ASA score P 2 - A patient with mild systemic disease as per Saleem Melchor MD. 11:03:58 Sedation plan: IV Moderate Sedation Medication:Versed, Fentanyl 11:05:27 Procedure started. 11:05:30 Local anesthetic to left femerol artery with Lidocaine 2% by Saleem Melchor MD.INITIAL ACCESS ONLY 11:06:28 Versed 1 mg I.V. was administered by Sushil Rivera RN; for sedation; 11:06:37 Fentanyl 50 mcg I.V. was administered by Sushil Rivera RN; for sedation; 11::51 A 6 Fr Short sheath was inserted into the Left Femoral artery 11:07:22 6 Fr XBLAD 4 guide catheter was inserted over the wire 11:08:02 Heparin Bolus 4000 units I.V. was administered by Sushil Rivera RN; for anticoagulation; 11:09:12 Choice PT XS wire advanced. 11:10:00 Wire advanced across lesion. 11:10:18 Inflation number: 1 A EUPHORA 2.5 x 15 Balloon ([id number]) was prepped and advanced across the Ramus, then inflated to 11 CATHERINE for 0:10 (min:sec). 11:11:04 Balloon removed over the wire. 11:12:12 Inflation Number: 2 A MIMA RX 2.5 x 18 stent ([id number]) was prepped and advanced across the Ramus. The stent was deployed at 11 CATHERINE for 0:10 (min:sec). 11:12:41 Stent catheter was removed intact over wire. 11:12:42 Wire removed. 11:12:42 Guide catheter removed. 11:12:44 EXOSEAL 6Fr (EX600) opened to sterile field. 11:12:54 Sheath removed intact; hemostasis achieved with Exoseal to the Left Femoral artery. 11:12:55 Procedure ended.(Physican Out) 11:13:06 Fluoroscopy time 01.80 minutes. 11:13:10 Fluoroscopy dose: 162 mGy 11:13:10 Flurop Dose total: 162 11:13:13 Contrast amount:Isovue 300 44ml. 11:13:15 Sharps counted by scrub and verified by R.N. 11:13:16 Insertion/operative site no bleeding no hematoma. 11:13:19 Post-op/insertion site Left Femoral artery dressed using a 4 x 4 and Tegaderm. 11:13:24 Post Procedure Pulses reassessed and unchanged 11:13:28 Post-procedure physical assessment completed. ASA score P 2 - A patient with mild systemic disease as per Saleem Melchor MD. 11:13:31 Post procedure rhythm: unchanged. 11:13:34 Estimated blood loss: 10 ml 11:13:35 Post procedure instruction explained to patient.Patient verbalizes understanding. 11:13:35 Patient needs reinforcement of post procedure teaching. 11:14:47 Procedure type changed to Cath procedure, PCI procedure, Coronary Stent, Coronary Stent Initial, Miscellaneous Procedures, Moderate Sedation up to 15 minutes 11:14:49 Procedure and supply charges have been captured, reviewed, submitted and are correct. 11:14:51 Procedure Complication : No complications 11:16:08 Vital chart was stopped 11:16:09 See physician's report for complete and final results. 11:16:11 Report given to Pre/Post Procedure Room. 11:16:14 Patient transfered to Pre/Post Procedure Room with Stretcher. 11:16:16 Procedure ended. 11:16:16 Full Disclosure recording stopped 11:17:43 End room use (Document Last) Intervention Summary Intervention Notes Time ActionType Lesion and Equipment Used Action# Pressure Duration Attributes 11:10:18 Inflate Ramus EUPHORA 2.5 x 1 11 00:10 balloon 15 Balloon ([id number]) 11:12:12 [address] stent Ramus MIMA RX 2.5 x 2 11 00:10 18 stent ([id number]) Device Usage Item Name Manufacture Quantity Catalog Number Hospital Part Current M inimal Lot# / Charge Number Stock Stock Serial# Code Tegaderm 4 x 4 3M 1 [id number] [id number] [id number] 434330 5 ([id number]) ACIST Manifold Acist 1 87567 254301 756713 774390 5 (47125) Medical Systems Inc ACIST Hand Acist 1 46706 223586 682661 176180 5 Control Medical (13162) Systems Inc ACIST Syringe Acist 1 11707 786517 398595 368206 2 0 (83341) Medical Systems Inc Medline Cath Cardinal 1 [id number] 868606 82999 595107 5 Pack Health ([id number]) Bag Decanter Microtek 1 2001S 290815 91323 511926 5 (2001S) Medical Inc. DIAGNOSTIC [place] 1 233067 284695 937995 453795 3 0 WIRE .035 260cm J wire (033809) INFLATOR Merit Merit 1 QZ6547 344648 436103 566556 1 5 [place] (IR5491) SHEATH 6FR Terumo 1 LBU125 684126 766086 084364 4 0 [place] (PDE322) CHOICE PT Carlin 1 [id number] 451881 114205 421696 5 Extra Support Scientific 182cm wire ([id number]) NEEDLE Merit Merit 1 [id number] 548957 581326 687226 5 18G 9cm Medical Percutaneous Entry ([id number]) GUIDE 6FR Cardinal 1 [id number] 779406 740218 680453 3 XBLAD 4.0 Health catheter ([id number]) EUPHORA 2.5 x Medtronic 1 [id number] 821308 331153 679921 5 [id number] 15 Balloon ([id number]) MIMA RX 2.5 x Medtronic 1 [id number] 781587 0713403 111980 5 [id number] 18 stent ([id number]) EXOSEAL 6Fr Cardinal 1 EX600 622075 325131 404820 1 0 (EX600) Health Signature Audit [employer] Stage Time Signature Unsigned Intra-Procedure 07/07/2017 Delvis Burch 11:17:59 AM RT(R) Signatures Monitor : Delvis Burch RT Signature : Date : Time : [address] [place] [address]
[~2017-07-07 07:46] MED LIST: FUROSEMIDE40 MG PO; K-DUR20 MEQ PO; LISINOPRIL5 MG PO; NORVASC5 MG PO; PLAVIX75 MG PO; PREDNISONE20 MG PO; PROSCAR5 MG PO; SYNTHROID50 MCG PO
[2017-07-07] MEDS ORDERED: PREDNISONE20 MG PO (09:39)
[2017-07-07 09:40] VITALS: BP 153/70; Ht 172.7 cm; Wt 72.3 kg
[2017-07-07 09:52] LABS: BASOPHILS 0 % (0-2); EOSINOPHILS 0 % (0-7); HEMATOCRIT 45.1 % (42.0-54.0); HEMOGLOBIN 15.9 g/dL (13.5-17.5); IMMATURE GRANULOCYTES 0.3 % (0-5); LYMPHOCYTES 6.8 % (15-50); MCH 31.2 pg (26.0-34.0); MCHC 35.3 g/dL (31.0-37.0); MCV 88.6 fL (80.0-100.0); MEAN PLATELET VOLUME 11.2 fL (7.4-10.4); MONOCYTES 3.2 % (2-11); NEUTROPHILS 89.7 % (40-80); PLATELET COUNT 127 10x3/uL (130-400); RBC 5.09 10x6/uL (4.20-6.10); WBC 10.2 10x3/uL (4.8-10.8)
[2017-07-07 10:00] LABS: ANION GAP 14.7 mmol/L (8-16); CALCIUM 8.8 mg/dL (8.5-10.1); CARBON DIOXIDE 25.8 mmol/L (21.0-32.0); CREATININE - SERUM 1.5 mg/dL (0.6-1.3); POTASSIUM - SERUM 4.5 mmol/L (3.5-5.1)
== END 2017-07-07 15:55 | disposition home or self-care (01) ==
LOC: D.CATH 07:46
PROVIDERS: Internal Medicine Interventional Cardiology
DX: I25.119 Atherosclerotic heart disease of native coronary artery with unspecified angina pectoris (principal); Z01.812 Encounter for preprocedural laboratory examination

== ENCOUNTER 2019-03-04 11:04 | Emergency (ER) | payer MEDICARE ==
[~2019-03-04] VITALS: Ht 172.7 cm; Wt 69.5 kg
[2019-03-04 11:12] VITALS: Ht 172.7 cm; Wt 69.5 kg
[2019-03-04] MEDS ORDERED: BAYER CHEWABLE81 MG PO (11:20)
[2019-03-04] MEDS ORDERED: EFUDEX 5 % CREA40 GM TOPICAL (11:21)
[2019-03-04] MEDS ORDERED: NITROSTAT0.4 MG SL (11:22)
[2019-03-04] MEDS ORDERED: MECLIZINE HCL25 MG PO (11:23)
[2019-03-04 11:54] LABS: BASOPHILS 0.1 % (0-2); EOSINOPHILS 1.3 % (0-7); HEMATOCRIT 42.2 % (42.0-54.0); HEMOGLOBIN 14.6 g/dL (13.5-17.5); IMMATURE GRANULOCYTES 0.6 % (0-5); LYMPHOCYTES 15.8 % (15-50); MCH 31.1 pg (26.0-34.0); MCHC 34.6 g/dL (31.0-37.0); MEAN PLATELET VOLUME 9.7 fL (7.4-10.4); MONOCYTES 10.6 % (2-11); NEUTROPHILS 71.6 % (40-80); PLATELET COUNT 135 10x3/uL (130-400); RBC 4.69 10x6/uL (4.20-6.10); RDW 15.7 % (11.5-14.5); WBC 7.8 10x3/uL (4.8-10.8)
[2019-03-04 12:08] LABS: ALKALINE PHOSPHATASE 137 U/L (46-116); ALT (SGPT) 18 U/L (10-68); BILIRUBIN - TOTAL 0.72 mg/dL (0.2-1.3); CALC OSMOLALITY 291 mosm/kg (275-300); CARBON DIOXIDE 29.8 mmol/L (21.0-32.0); CHLORIDE - SERUM 107 mmol/L (98-107); CREATININE - SERUM 1.4 mg/dL (0.6-1.3); GLUCOSE 125 mg/dL (74-106); PROTEIN - SERUM 6.4 g/dL (6.4-8.2); SODIUM 143 mmol/L (136-145); UREA NITROGEN 28 mg/dL (7-18); eGFR NON AFRICAN AMERICAN 51 mL/min (90-120)
[2019-03-04 12:10] LABS: APTT 29.3 SECONDS (22.8-39.4); INR 1.03 (0.85-1.17)
[2019-03-04 12:21] LABS: CKMB 1.6 U/L (0.0-3.6); CREATINE KINASE 48 UL (21-232); TROPONIN-I 0.033 ng/mL (0.000-0.060)
[2019-03-04 14:47] VITALS: BP 181/78
== END 2019-03-04 14:41 | disposition home or self-care (01) ==
LOC: D.ER 11:04
PROVIDERS: Emergency Medicine
DX: I48.91 Unspecified atrial fibrillation (principal); R55 Syncope and collapse; N18.9 Chronic kidney disease, unspecified; I12.0 Hypertensive chronic kidney disease with stage 5 chronic kidney disease or end stage renal disease